=== PATIENT | female | born 1990 | race Caucasian/White ===

== ENCOUNTER 2019-04-09 22:02 | Emergency (ER) | payer OTHER ==
--- NOTE | 2019-04-09 23:26 | ERPHSYRPT ---
- History of Present Illness Time Seen by Provider: 04/09/19 23:17 Source: patient Exam Limitations: no limitations Patient Subjective Stated Complaint: nasal congetion, sore throat and coughing up blood yesterday today blood was bright red Triage Nursing Assessment: alert and oriented, Steady gait, talking in full sentences, Physician History: 28-year-old white female who states that she is 28 weeks . Patient states she was having a runny nose cough sore throat going on for several days. She states yesterday she had some pink tinged sputum. Today she had increasing blood in her sputum. She has no chest pain no nausea or vomiting no belly pain she does continue to have a runny nose. Past medical history negative. Past surgical history negative. Social history former smoker. Timing/Duration: yesterday Severity: mild Modifying Factors: Improves With: nothing Associated Symptoms: cough, other (runny nose sore throat), No nausea, No vomiting, No abdominal pain, No shortness of breath, No heartburn, No diaphoresis, No chills, No chest pain, No fever, No headaches, No loss of appetite, No malaise, No rash, No syncope, No seizure, No weakness Allergies/Adverse Reactions: No Known Drug Allergies Allergy (Unverified 04/09/19 23:08) Home Medications: Vits W-Ca,Fe,FA(<1Mg) [] 1 each PO HS 04/09/19 [History] Immunizations Up to Date: Yes - Review of Systems Constitutional: No Fever, No Chills Eyes: No Symptoms Ears, Nose, & Throat: Nose Congestion, Nose Discharge, Throat Pain, No Ear Pain , No Ear Discharge, No Hearing Changes, No Tinnitus, No Nose Pain, No Sinus Drainage, No Epistaxis, No Mouth Pain, No Mouth Swelling, No Loose Teeth, No Throat Swelling, No Hoarse, No Painful Swallowing, No Snoring, No Stridor Respiratory: Cough, Other (patient states she is coughing up blood) Cardiac: No Chest Pain, No Edema, No Syncope Abdominal/Gastrointestinal: No Abdominal Pain, No Nausea, No Vomiting, No Diarrhea Genitourinary Symptoms: (patient states she is 28 weeks ), No Dysuria Musculoskeletal: No Symptoms, No Back Pain, No Neck Pain Skin: No Rash Neurological: No Dizziness, No Focal Weakness, No Sensory Changes Psychological: No Symptoms Endocrine: No Symptoms All Other Systems: Reviewed and Negative - Past Medical History Pertinent Past Medical History: No - Past Surgical History Past Surgical History: No - Social History Smoking Status: Former smoker Exposure to second hand smoke: No Drug Use: none Patient Lives Alone: No - Female History Hx Now: Yes Expected Date of Delivery: 07/04/19 Gestational Age: 28 - Nursing Vital Signs Nursing Vital Signs: Initial Vital Signs Respiratory Rate 20 04/09/19 22:57 O2 Sat by Pulse Oximetry 96 04/09/19 22:57 Pain Scale Pain Intensity 0 - Physical Exam General Appearance: no apparent distress, alert Ears, Nose, Throat Exam: normal ENT inspection, TMs normal, pharynx normal, moist mucous membranes, other (nasal congestion) Neck Exam: normal inspection, non-tender, supple, full range of motion Respiratory Exam: normal breath sounds, lungs clear, No respiratory distress Cardiovascular Exam: regular rate/rhythm, normal heart sounds, normal peripheral pulses, capillary refill <2 sec Gastrointestinal/Abdomen Exam: soft, normal bowel sounds, No tenderness, No mass Back Exam: normal inspection, normal range of motion, No CVA tenderness, No vertebral tenderness Extremity Exam: normal inspection, normal range of motion, pelvis stable Neurologic Exam: alert, oriented x 3, cooperative, long term care pharmacist II-XII nml as tested, normal mood/affect, nml cerebellar function, nml station & gait, sensation nml, No motor deficits Skin Exam: normal color, warm, dry, No rash Lymphatic Exam: No adenopathy SpO2 Interpretation: normal (96%) SpO2: 96 - Course Nursing assessment & vital signs reviewed: Yes Ordered Tests: Active Orders 24 hr Category Date Time Status CBC W DIFF Stat Lab 04/09/19 23:48 Completed CMP Stat Lab 04/09/19 23:48 Completed PROTIME WITH INR Stat Lab 04/09/19 23:48 Completed PTT Stat Lab 04/09/19 23:48 Completed Medication Summary Discontinued Medications Generic Name Dose Route Start Last Admin Trade Name Fremaame PRN Reason Stop Dose Admin Azithromycin 500 mg 04/10/19 00:17 04/10/19 00:19 Zithromax 250 Mg Tablet PO 04/10/19 00:18 500 mg STAT ONE Administration Azithromycin Confirm 04/10/19 00:18 Zithromax 250 Mg Tablet Administered 04/10/19 00:19 Dose 500 mg .ROUTE .STK-MED ONE Lab/Rad Data: Laboratory Result Diagrams 04/09/19 23:48 04/09/19 23:48 Laboratory Results 04/09/19 04/09/19 04/09/19 Range/Units 23:48 23:48 23:48 WBC 13.6 H (4.0-10.5) K/mm3 RBC 3.44 L (4.1-5.4) M/mm3 Hgb 10.9 L (12.0-16.0) gm/dl Hct 32.6 L (35-47) % MCV 94.8 (78-100) fl MCH 31.6 (26-32) pg MCHC 33.4 (32-36) g/dl RDW 12.3 (11.5-14.0) % Plt Count 225 (150-450) K/mm3 MPV 9.5 (6-9.5) fl Gran % 70.4 H (36.0-66.0) % Eos # (Auto) 0.17 (0-0.5) Absolute Lymphs (auto) 2.95 (1.0-4.6) Absolute Monos (auto) 0.90 (0.0-1.3) Lymphocytes % 21.7 L (24.0-44.0) % Monocytes % 6.6 (0.0-12.0) % Eosinophils % 1.2 (0.00-5.0) % Basophils % 0.1 (0.0-0.4) % Absolute Granulocytes 9.57 H (1.4-6.9) Basophils # 0.02 (0-0.4) PT 12.0 (9.95-12.35) SECONDS INR 1.06 (0.8-3.0) APTT 31.5 (25.3-37.0) SECONDS Sodium 139 (137-145) mmol/L Potassium 3.3 L (3.5-5.1) mmol/L Chloride 109 H (98-107) mmol/L Carbon Dioxide 24 (22-30) mmol/L Anion Gap 9.5 (5-15) MEQ/L BUN 11 (7-17) mg/dL Creatinine 0.56 (0.52-1.04) mg/dL Estimated GFR > 60.0 ML/MIN Glucose 89 (74-106) mg/dL Calcium 9.7 (8.4-10.2) mg/dL Total Bilirubin 0.20 (0.2-1.3) mg/dL AST 18 (14-36) U/L ALT 9 (0-35) U/L Alkaline Phosphatase 98 (38-126) U/L Serum Total Protein 6.6 (6.3-8.2) g/dL Albumin 3.3 L (3.5-5.0) g/dL - Progress Progress: improved Progress Note: 04/09/19 23:49 I had initially offered to shield the patient's abdomen (she is 28 weeks ) and obtain chest x-ray. Patient initially agreed but later refused. Will await patient's lab work. Anticipate home with Zithromax. 04/10/19 00:13 Patient's CBC, CMP, PTT, PT Within normal limits will discharge patient Will place patient on Zithromax. 04/10/19 03:04 The patient's heart tones were checked by nurse and were 150 bpm. - Departure Departure Disposition: Home Clinical Impression: Bronchitis, Hemoptysis URI (upper respiratory infection) Qualifiers: URI type: unspecified URI Qualified Code(s): J06.9 - Acute upper respiratory infection, unspecified Qualifiers: Weeks of gestation: 28 weeks Qualified Code(s): Z3A.28 - 28 weeks gestation of Condition: Fair Critical Care Time: No Referrals: DOCTOR,NO FAMILY [Primary Care Provider] - Instructions: Acute Bronchitis Additional Instructions: Return home. Plenty of fluids. Zithromax as prescribed. Followup with your family doctor/[facility] physician. Return for acute distress severe symptoms or for any problems. Prescriptions: Azithromycin 250 mg [Zithromax 250 MG TABLET] 250 mg PO DAILY #4 tablet
[2019-04-09 23:55] LABS: BASOPHIL % 0.1 % (0.0-0.4); Basophil (Absolute #) 0.02 (0-0.4); Eosinophil % 1.2 % (0.00-5.0); Eosinophil (Absolute #) 0.17 (0-0.5); Granulocyte Absolute (ANC) 9.57 (1.4-6.9); Granulocytes % 70.4 % (36.0-66.0); Hematocrit 32.6 % (35-47); Hemoglobin 10.9 gm/dl (12.0-16.0); Lymphocyte (Absolute #) 2.95 (1.0-4.6); Lymphocytes % 21.7 % (24.0-44.0); Mean Cell Volume 94.8 fl (78-100); Mean Corpuscular Hgb Concent. 33.4 g/dl (32-36); Mean Platelet Volume 9.5 fl (6-9.5); Monocytes % 6.6 % (0.0-12.0); Platelet Count 225 K/mm3 (150-450); Red Blood Count 3.44 M/mm3 (4.1-5.4); Red Cell Distribution Width 12.3 % (11.5-14.0); White Blood Count 13.6 K/mm3 (4.0-10.5)
[2019-04-10] LABS: Mean Corpuscular Hemoglobin 31.6 pg (26-32)
[2019-04-10 00:02] LABS: INR 1.06 (0.8-3.0)
[2019-04-10 00:04] LABS: PTT 31.5 SECONDS (25.3-37.0)
[2019-04-10 00:06] LABS: ALBUMIN 3.3 g/dL (3.5-5.0); ALKALINE PHOSPHATASE 98 U/L (38-126); ANION GAP 9.5 MEQ/L (5-15); BLOOD UREA NITROGEN 11 mg/dL (7-17); CHLORIDE 109 mmol/L (98-107); Calcium 9.7 mg/dL (8.4-10.2); Carbon Dioxide 24 mmol/L (22-30); Creatinine 1 0.56 mg/dL (0.52-1.04); Glucose 89 mg/dL (74-106); Potassium 3.3 mmol/L (3.5-5.1); SGOT/AST 18 U/L (14-36); SGPT/ALT 9 U/L (0-35); SODIUM 139 mmol/L (137-145); Total Protein 6.6 g/dL (6.3-8.2)
[2019-04-10 00:10] VITALS: BP 122/74; PULSE 89
[2019-04-10 00:17] VITALS: O2SAT 96
[2019-04-10] MEDS ORDERED: Zithromax 250 MG TABLET PO ONE (00:17)
[2019-04-10] MEDS ORDERED: Zithromax 250 MG TABLET ONE (00:18)
== END 2019-04-10 00:29 | disposition home or self-care (01) ==
LOC: ED 22:02
DX: J40 Bronchitis, not specified as acute or chronic (principal); R04.2 Hemoptysis; J06.9 Acute upper respiratory infection, unspecified; Z3A.28 28 weeks gestation of pregnancy
CPT/HCPCS: 36415; 80053; 85025; 85610; 85730; 99284; A9270-GY